=== PATIENT | female | born 1990 | race Caucasian/White ===

== ENCOUNTER 2018-12-22 16:48 | Emergency (ER) | payer OTHER, BC ==
[2018-12-22] MEDS ORDERED: SODIUM CHLORIDE 0.9% 500 ML 500 ML IV STA (16:54)
[2018-12-22] MEDS ORDERED: SODIUM CHLORIDE 0.9% 1,000 ML IV STA ×2 (16:54)
[2018-12-22] MEDS ORDERED: ACETAMINOPHEN IV (For NPO) 1,000 MG in EMPTY BAG 1 BAG IVPB STA (17:07)
[2018-12-22 17:12] LABS: Basophils % (A) 0 %; Eosinophils # (A) 0.3 k/uL (0-0.7); Eosinophils % (A) 2 %; HCT 36.1 % (34.0-46.0); Lymphocytes # (A) 3.4 k/uL (1.0-4.8); Lymphocytes % (A) 23 %; MCH 30.5 pg (25.0-35.0); MCHC 33.3 g/dL (31.0-37.0); MCV 91.8 fL (80.0-100.0); Mean Platelet Volume 7.6; Monocytes # (A) 0.6 k/uL (0-1.0); Monocytes % (A) 4 %; Neutrophils # (A) 10.3 k/uL (1.3-7.7); Neutrophils % (A) 70 %; Platelet Count 282 k/uL (150-450); RBC 3.93 m/uL (3.80-5.40); RDW 13.2 % (11.5-15.5); WBC 14.7 k/uL (3.8-10.6)
[2018-12-22 17:20] LABS: INR 0.8 (<1.2); Partial Thromboplastin Time 22.6 sec (22.0-30.0); Prothrombin Time 9.4 sec (9.0-12.0)
[2018-12-22 17:21] VITALS: BP 117/70; PULSE 87; RESP 18
[2018-12-22 17:21] LABS: ALT 35 U/L (9-52); AST 34 U/L (14-36); Albumin 3.4 g/dL (3.5-5.0); Alcohol <10 mg/dL; Alkaline Phosphatase 68 U/L (38-126); Amylase 62 U/L (30-110); Anion Gap 7 mmol/L; Blood Urea Nitrogen 6 mg/dL (7-17); Calcium 8.9 mg/dL (8.4-10.2); Carbon Dioxide 23 mmol/L (22-30); Chloride 105 mmol/L (98-107); Glucose 85 mg/dL (74-99); Lipase 136 U/L (23-300); Potassium 4.1 mmol/L (3.5-5.1); Sodium 135 mmol/L (137-145); Total Bilirubin 0.3 mg/dL (0.2-1.3); Total Protein 6.4 g/dL (6.3-8.2)
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
[2018-12-22 17:40] LABS: Creatine Kinase 77 U/L (30-135)
[2018-12-22 17:52] LABS: Creatine Kinase MB <0.2 ng/mL (0.0-2.4); Troponin I <0.012 ng/mL (0.000-0.034)
== END 2018-12-22 17:47 | disposition short-term general hospital (02) ==
LOC: EC 16:48
DX: O9A.211 Injury, poisoning and certain other consequences of external causes complicating pregnancy, first trimester (principal); S19.9XXA Unspecified injury of neck, initial encounter; S29.9XXA Unspecified injury of thorax, initial encounter; S39.91XA Unspecified injury of abdomen, initial encounter; Z3A.14 14 weeks gestation of pregnancy; V43.52XA Car driver injured in collision with other type car in traffic accident, initial encounter; Y92.410 Unspecified street and highway as the place of occurrence of the external cause
CPT/HCPCS: 36415; 86900; 86901; 80053; 82150; 82550; 82553; 83605; 83690; 84484; 85025; 85610; 85730; 86850; 80320; 99291; J0131

== ENCOUNTER 2019-04-25 11:21 | Outpatient (CLI) | payer BC, OTHER ==
[2019-04-25] MEDS ORDERED: BETAMET ACET-BETAMETH SOD PHOS 6 MG/ML VIAL IM SCH (11:30)
[2019-04-25 12:21] VITALS: BP 125/73; PULSE 88; RESP 14; TEMP 98.1
--- NOTE | 2019-05-14 08:32 | P.MSEPDOC ---
Presenting Problems - Arrival Data Date of Arrival on Unit: 04/25/19 Time of Arrival on Unit: 11:40 Mode of Transport: Ambulatory - Complaint OB-Reason for Admission/Chief Complaint: NST, Celestone Injection Medical History - Information : 1 Para: 0 Term: 0 : 0 Abortions: Spontaneous or Elective: 0 Number of Living Children: 0 - Gestational Age Gestational Age by DANNY (wks/days): 33 Weeks and 5 Days - History Complications: Multiple Review of Systems - Review of Systems Constitutional: No problems Breast: No problems ENT: No problems Cardiovascular: No problems Respiratory: No problems Gastrointestinal: No problems Genitourinary: No problems Musculoskeletal: No problems Neurological: No problems Skin: No problems Vital Signs - Temperature Temperature: 98.1 F Temperature Source: Oral - Pulse Right Brachial Pulse Rate: 88 Pulse Assessment Method: Automatic Cuff - Respirations Respiratory Rate: 14 Oxygen Delivery Method: Room Air - Blood Pressure Right Arm Blood Pressure: 125/73 Blood Pressure Mean: 90 Blood Pressure Source: Automatic Cuff Medical Screen Scoring (Pre) - Cervical Exam Dilation: Exam Deferred Effacement: Exam Deferred Membranes: Intact - Uterine Contractions Frequency: N/A Duration: N/A Intensity: N/A - Maternal Vital Signs Maternal Temperature: N/A Maternal Blood Pressure: N/A Signs of Preeclampsia: N/A Maternal Respirations: N/A - Maternal Trauma Maternal Trauma: N/A - Total Score - Baby A Total Score - Baby A: 0 - Total Score - Baby B Total Score - Baby B: 0 - Total Score - Baby C Total Score - Baby C: 0 - Level of Risk - Baby A Level of Risk - Baby A: Low (0-5) - Level of Risk - Baby B Level of Risk - Baby B: Low (0-5) - Level of Risk - Baby C Level of Risk - Baby C: Low (0-5) Physician Notification (Pre) - Physician Notified Physician Notified Date: 04/25/19 Physician Notified Time: 11:42 Physician/Practitioner Notifed:: anthony Spoke With: anthony New Order Received: Yes - Notification Comment Comment: twin nst and first celestone injection Disposition - Disposition OB Disposition: Discharge to home Discharge Date: 04/25/19 Discharge Time: 12:25 I agree with the RN Medical Screening Exam: Yes Risk & Benefit of care provided described in d/c instruction: Yes Diagnosis: OTHER SPECIFIED COMPLICATIONS OF LABOR AND DELIVERY
== END 2019-04-25 12:25 | disposition home or self-care (01) ==
LOC: FBPOP 11:21
PROVIDERS: ATTEND Obstetrics & Gynecology Obstetrics
DX: O75.89 Other specified complications of labor and delivery (principal); Z3A.33 33 weeks gestation of pregnancy
CPT/HCPCS: 59025; 99213; J0702

== ENCOUNTER 2019-04-26 12:06 | Outpatient (CLI) | payer BC, OTHER ==
[2019-04-26] MEDS ORDERED: BETAMET ACET-BETAMETH SOD PHOS 6 MG/ML VIAL IM SCH (12:30)
== END 2019-04-26 12:30 | disposition home or self-care (01) ==
LOC: FBPOP 12:06
PROVIDERS: ATTEND Obstetrics & Gynecology Obstetrics
DX: O60.03 Preterm labor without delivery, third trimester (principal); Z3A.33 33 weeks gestation of pregnancy
CPT/HCPCS: 96372; J0702

== ENCOUNTER 2019-05-18 10:17 | Inpatient (IN) | payer BC, OTHER ==
[2019-05-18] MEDS ORDERED: CITRIC ACID-SODIUM CITRATE 15 ML CUP PO ONE (10:51)
[2019-05-18] MEDS ORDERED: ALBUTEROL NEBULIZED 2.5 MG/3 ML INHALATION PRN (10:52)
[2019-05-18] MEDS ORDERED: LACTATED RINGERS 1,000 ML IV SCH (11:00)
--- NOTE | 2019-05-18 11:01 | P.HPOB ---
History of Present Illness H&P Date: 05/18/19 Chief Complaint: IUP @ 37 0/7 weeks di/di twin gestation, unstable lie This is a pleasant 28 yo at 37 weeks that presents for LTCS secondary to known twin gestation/ unstable lie of twins. she has been experiencing frequent contractions, and pelvic discomfort. she den ies VB, LOF and notes good FM x 2. she has been recieving routine care with myself since the first trimester, and care has been uncomplicated. on blood work she has a blood type of Opos, rubella is immune, RPR NR, HeBSag neg, she did pass her 1 hour gds, received Tdap on 03/14, and gbs was neg on 05/08 she was counseled on the need for c section given the unstable lie of these babies, breech/breech at last ultrasound. Review of Systems Constitutional: Reports fatigue, Denies chills, Denies fever Ears, nose, mouth and throat: Denies headache Cardiovascular: Reports leg edema Respiratory: Denies dyspnea Gastrointestinal: Denies constipation, Denies diarrhea, Denies nausea, Denies vomiting Genitourinary: Reports Past Medical History Past Medical History: Asthma, GERD/Reflux Additional Past Medical History / Comment(s): IBS, WITH TWINS History of Any Multi-Drug Resistant Organisms: None Reported Past Surgical History: No Surgical Hx Reported Additional Past Surgical History / Comment(s): EGD Past Anesthesia/Blood Transfusion Reactions: No Reported Reaction Past Psychological History: No Psychological Hx Reported Smoking Status: Never smoker Past Alcohol Use History: None Reported Additional Past Alcohol Use History / Comment(s): NO ALCOHOL DURING Past Drug Use History: None Reported - Past Family History Mother Family Medical History: No Reported History Medications and Allergies Home Medications Medication Instructions Recorded Confirmed Type Albuterol Inhaler [Ventolin Hfa 2 puff INHALATION RT-Q6H PRN 12/22/18 05/14/19 History Inhaler] Pnv No.95/Ferrous Fum/Folic AC 1 tab PO DAILY 12/22/18 05/14/19 History [ Multivitamin Tablet] Allergies Allergy/AdvReac Type Severity Reaction Status Date / Time No Known Allergies Allergy Verified 05/14/19 13:12 Exam Osteopathic Statement: *. No significant issues noted on an osteopathic structural exam other than those noted in the History and Physical/Consult. targerted physical exam done on this date, in general this is well nourished female in no acute distress, abdomen is gravid with twin gestation, F HTS are reactive x 2, cervical exam is deferred, - OBG Physical Exam Abdomen: gravid with twin gestation Assessment and Plan (1) Twin Current Visit: Yes Status: Acute Code(s): O30.009 - TWIN , UNSP NUM PLCNTA & AMNIO SACS, UNSP TRIMESTER SNOMED Code(s): 45161066 (2) Malpresentation before onset of labor Current Visit: Yes Status: Acute Code(s): O32.9XX0 - MATERNAL CARE FOR MALPRESENTATION OF FETUS, UNSP, UNSP SNOMED Code(s): 935658993 Plan: plan primary LTCS given malpresentation of the twins. c section is discussed with pt at length in the office and all questions were answered. will proceed to OR for planned c section.
[2019-05-18 11:22] LABS: Anisocytosis Slight; Basophils % (A) 0 %; Eosinophils # (A) 0.1 k/uL (0-0.7); Eosinophils % (A) 1 %; HCT 33.4 % (34.0-46.0); HGB 10.8 gm/dL (11.4-16.0); Hypochromasia Slight; Lymphocytes # (A) 2.1 k/uL (1.0-4.8); Lymphocytes % (A) 19 %; MCH 28.5 pg (25.0-35.0); MCHC 32.3 g/dL (31.0-37.0); Mean Platelet Volume 9.1; Monocytes # (A) 0.5 k/uL (0-1.0); Monocytes % (A) 4 %; Neutrophils # (A) 8.4 k/uL (1.3-7.7); Neutrophils % (A) 75 %; Platelet Count 239 k/uL (150-450); RDW 16.9 % (11.5-15.5); WBC 11.3 k/uL (3.8-10.6)
[2019-05-18 11:33] VITALS: BMI 90.1
[2019-05-18] MEDS ORDERED: NALBUPHINE 10 MG/ML (1 ML AMP) IM ONE (12:11)
[2019-05-18] MEDS ORDERED: NALBUPHINE 10 MG/ML (1 ML AMP) ONE (12:23)
[2019-05-18] MEDS ORDERED: LACTATED RINGERS 1,000 ML BAG IV ONE (12:23)
[2019-05-18] MEDS ORDERED: .MORPHINE SULFATE (INJ) 10 MG/ML SYRINGE ONE (12:23)
[2019-05-18] MEDS ORDERED: ePHEDrine SULFATE/0.9% NACL/PF 50 MG/5 ML SYRINGE IV ONE (12:23)
[2019-05-18] MEDS ORDERED: ONDANSETRON 4 MG/2 ML VIAL ONE (12:23)
[2019-05-18] MEDS ORDERED: OXYTOCIN 10 UNIT/ML 1 ML VIAL ONE (12:23)
[2019-05-18] MEDS ORDERED: MORPHINE SULFATE (PF) 0.3 MG/0.3 ML SYR ONE (12:23)
[2019-05-18] MEDS ORDERED: KETOROLAC 30 MG/ML 1 ML VIAL IVP PRN (13:07)
[2019-05-18] MEDS ORDERED: diphenhydrAMINE 50 MG/ML 1 ML VIAL IVP PRN ×3 (13:07→13:14)
[2019-05-18] MEDS ORDERED: NALOXONE 0.4 MG/ML 1 ML VIAL IV PRN ×2 (13:07→13:14)
[2019-05-18] MEDS ORDERED: MORPHINE SULFATE 4 MG/ML SYRINGE IVP PRN (13:07)
[2019-05-18] MEDS ORDERED: HYDROcodone/APAP 5-325MG 1 EACH TAB PO PRN (13:14)
[2019-05-18] MEDS ORDERED: ONDANSETRON 4 MG/2 ML VIAL IVP PRN (13:14)
[2019-05-18] MEDS ORDERED: ZOLPIDEM 5 MG TAB PO PRN (13:14)
[2019-05-18] MEDS ORDERED: METOCLOPRAMIDE 5 MG/ML 2 ML VIAL IVP PRN (13:14)
[2019-05-18] MEDS ORDERED: diphenhydrAMINE 25 MG CAP PO PRN (13:14)
[2019-05-18] MEDS ORDERED: SIMETHICONE 80 MG CHEWABLE PO PRN (13:14)
[2019-05-18] MEDS ORDERED: diphenhydrAMINE 50 MG CAP PO PRN (13:14)
[2019-05-18] MEDS ORDERED: OXYTOCIN 20 UNITS/1000 ML NS 1,000 ML IV SCH (13:15)
--- NOTE | 2019-05-18 13:20 | P.OP ---
Date of Procedure: 05/18/19 Preoperative Diagnosis: IUP at 37-0/7 weeks, twin gestation, unstable lie Postoperative Diagnosis: Same Procedure(s) Performed: Primary low transverse section Anesthesia: spinal Surgeon: Whit Barnes Football Coach #1: Anuj Mandujano Estimated Blood Loss (ml): 700 IV fluids (ml): 1,300 Urine output (ml): 150 Pathology: none sent Condition: stable Disposition: observation Indications for Procedure: Twin gestation with unstable lie, extreme maternal discomfort Operative Findings: Normal uterus tubes and ovaries were appreciated upon entering the abdomen infant a baby boy, weight of 6 lbs. 7 oz. with time of 1242, Apgars of 9 and 10 infant B baby girl delivered at 1243, weight of 6 lbs. 6 oz. with Apgars of 8 and 9 at one and 5 minutes respectively. Description of Procedure: Patient was taken back to the operating suite where spinal anesthesia was administered by the anesthesia department. She was then prepped and draped in normal sterile fashion in the dorsal supine position. A Pfannenstiel skin incision was made with the scalpel and carried through the underlying layer of fascia. The fascia was then incised in the midline and the incision was extended laterally. The anterior aspect of the fascial incision was then grasped with Alsey clamps, elevated and underlying rectus muscles dissected off sharply. The inferior aspect of the fascial incision was then grasped with Sahara clamps, elevated and underlying rectus muscle was dissected off sharply once again. The rectus muscles were in the midline the peritoneum was identified and entered sharply. This incision was then extended superiorly and inferiorly with good visualization of the bladder. The vesicouterine peritoneum was identified and the bladder flap was created using sharp and blunt dissection. The bladder blade was then inserted into the abdominal cavity. Hysterotomy site was then incised and a baby boy, was encountered in a transverse presentation converted to a breech presentation and delivered in the usual fashion. The cord was then doubly clamped and cut and the was handed off to awaiting RN. Infant B baby girl was then encountered in a vertex presentation the amniotic sac was ruptured clear fluid was obtained and the infant was delivered in the usual fashion the cord was doubly clamped and cut and the infant was handed off to an additional RN. Cord blood was then taken. The placentas were then delivered manually and the uterus was cleared of all clots and debris. The uterus was then delivered out of the abdomen. The hysterotomy site was then closed with 0 Vicryl in a running locked fashion from one lateral edge the other lateral edge an additional suture was used to obtain hemostasis. Some bleeding was noted on the left-hand side of the uterine incision therefore a [id number] suture was used to obtain hemostasis. The pelvis then copiously irrigated. The uterus was returned to the abdomen, and the hysterotomy site was inspected and hemostasis was appreciated. The gutters were cleared of all clots and debris at this time. The fascial incision was then closed with 0 Vicryl in a running locked fashion from one lateral edge the other lateral edge. The subcutaneous tissue was then irrigated and hemostasis was appreciated. The subcutaneous tissues then closed with 3-0 Vicryl in a running fashion. The skin was then closed with 4-0 Vicryl in a subcuticular fashion. Steri-Strips and sterile dressings were applied as needed. All counts were correct 2 patient and infants tolerated delivery well and are resting comfortably.
[2019-05-18] MEDS ORDERED: ACETAMINOPHEN IV (For NPO) 1,000 MG in EMPTY BAG 1 BAG IVPB ONE (13:30)
[2019-05-18] MEDS ORDERED: IBUPROFEN IV 800 MG in SODIUM CHLORIDE 0.9% 250 ML IV ONE (13:30)
[2019-05-18] MEDS: LACTATED RINGERS 1,000 ML IV SCH (20:30)
[2019-05-18] MEDS: SENNOSIDES-DOCUSATE SODIUM 1 EACH TAB PO SCH (20:35)
[2019-05-19 08:01] LABS: Anisocytosis Slight; Basophils % (A) 0 %; Eosinophils # (A) 0.1 k/uL (0-0.7); Eosinophils % (A) 1 %; HCT 23.7 % (34.0-46.0); Hypochromasia Slight; Lymphocytes # (A) 2.4 k/uL (1.0-4.8); Lymphocytes % (A) 21 %; MCHC 31.7 g/dL (31.0-37.0); MCV 88.5 fL (80.0-100.0); Mean Platelet Volume 8.8; Monocytes # (A) 0.5 k/uL (0-1.0); Monocytes % (A) 5 %; Neutrophils # (A) 8.2 k/uL (1.3-7.7); Neutrophils % (A) 73 %; Platelet Count 203 k/uL (150-450); RBC 2.67 m/uL (3.80-5.40); RDW 16.5 % (11.5-15.5); WBC 11.4 k/uL (3.8-10.6)
[2019-05-19 08:04] LABS: HGB 7.5 gm/dL (11.4-16.0)
[2019-05-19] MEDS: SENNOSIDES-DOCUSATE SODIUM 1 EACH TAB PO SCH ×2 (08:14→19:18)
[2019-05-19] MEDS: PRENATAL VIT-IRON-FOLIC ACID 1 EACH CAP PO SCH (08:15)
[2019-05-19] MEDS: IBUPROFEN 600 MG TAB PO PRN ×2 (08:15→13:53)
--- NOTE | 2019-05-19 08:27 | P.PN ---
Progress Note - Text Progress Note Date: 05/19/19 Patient is without complaints. Denies weakness or paresthesia. Denies headache. Pruritis controlled. Pain treated. A/P POD#1 s/p with spinal duramorph - doing well
--- NOTE | 2019-05-19 10:13 | P.PNOBGPC ---
Subjective - Subjective Principal diagnosis: POD 1 LTCS Interval history: Patient has done well overnight. The nausea and vomiting that she noted after the had resolved. She is ambulating and voiding without difficulty. She is tolerating clear liquids without nausea or vomiting. Her lochia is minimal. She is breast-feeding. Patient reports: Reports appetite normal, Reports voiding normally, Reports pain well controlled, Reports ambulating normally [place]: doing well Objective - Vital Signs Latest vital signs: Vital Signs Temp Pulse Resp BP Pulse Ox 05/19/19 08:00 99.3 F 95 18 129/85 97 05/19/19 06:00 16 97 05/19/19 04:00 98.4 F 76 16 137/76 05/19/19 02:00 18 97 05/19/19 00:00 98.2 F 80 16 127/74 05/18/19 22:00 16 97 05/18/19 20:00 97.8 F 76 16 123/70 97 05/18/19 18:00 16 05/18/19 16:00 97.1 F L 73 16 135/57 96 05/18/19 15:06 98.0 F 86 18 139/67 05/18/19 14:45 68 17 137/60 05/18/19 14:15 95.9 F L 86 18 129/58 05/18/19 14:00 96.3 F L 77 14 112/53 99 05/18/19 13:45 91 15 107/55 98 05/18/19 13:30 96.9 F L 76 17 109/55 05/18/19 13:15 98.2 F 76 18 109/55 100 05/18/19 10:59 98.3 F 76 18 139/85 98 Intake and Output 05/18/19 05/19/19 05/19/19 22:59 06:59 14:59 Intake Total 1000 Output Total 700 4350 Balance -700 -3350 Intake: Intake, IV Titration 1000 Amount Lactated Ringers 1,000 ml 1000 @ 125 mls/hr IV .Q8H [facility] [place] Rx#:[id number] Output: Urine 4350 Estimated Blood Loss 700 Other: Voiding Method Indwelling Catheter # Emes[place] 3 - Exam Extremities: Present: normal, edema Abdomen: Present: normal appearance, soft Incision: Present: normal, dry, intact Uterus: Present: normal, firm - Labs Labs: Abnormal Lab Results - Last 24 Hours (Table) 05/18/19 05/19/19 Range/Units 10:50 06:37 WBC 11.3 H 11.4 H (3.8-10.6) k/uL RBC 2.67 L (3.80-5.40) m/uL Hgb 10.8 L 7.5 L D (11.4-16.0) gm/dL Hct 33.4 L 23.7 L (34.0-46.0) % RDW 16.9 H 16.5 H (11.5-15.5) % Neutrophils # 8.4 H 8.2 H (1.3-7.7) k/uL Assessment and Plan (1) Twin Current Visit: Yes Status: Acute Code(s): O30.009 - TWIN , UNSP NUM PLCNTA & AMNIO SACS, UNSP TRIMESTER SNOMED Code(s): 97540886 (2) Malpresentation before onset of labor Current Visit: Yes Status: Acute Code(s): O32.9XX0 - MATERNAL CARE FOR MALPRESENTATION OF FETUS, UNSP, UNSP SNOMED Code(s): 546670180 Plan: Patient is doing well, will plan to continue routine postoperative care and anticipate discharge home tomorrow.
[2019-05-19] MEDS: ACETAMINOPHEN TAB 325 MG TAB PO PRN (19:17)
[2019-05-19] MEDS: LACTATED RINGERS 1,000 ML IV SCH ×6 (20:32→20:39)
[2019-05-20] MEDS: IBUPROFEN 600 MG TAB PO PRN ×4 (00:05→22:08)
[2019-05-20] MEDS: SENNOSIDES-DOCUSATE SODIUM 1 EACH TAB PO SCH ×2 (07:53→20:08)
[2019-05-20] MEDS: PRENATAL VIT-IRON-FOLIC ACID 1 EACH CAP PO SCH (07:53)
--- NOTE | 2019-05-20 11:46 | P.PNOBGPC ---
Subjective - Subjective Principal diagnosis: POD 2 LTCS twins Interval history: Patient is doing well overall. She is involuting and voiding without difficulty. She states her pain is controlled with by mouth pain medications she is struggling with breast-feeding at this time. Her lochia is minimal. Patient reports: Reports appetite normal, Reports voiding normally, Reports pain well controlled, Reports ambulating normally [place]: doing well (Baby girl is nursing well, baby boy is struggling and continues to work in nursing and supplement with formula) Objective - Vital Signs Latest vital signs: Vital Signs Temp Pulse Resp BP BP Pulse Ox 05/20/19 08:00 98.3 F 83 18 141/74 96 05/20/19 00:00 98.3 F 89 16 144/69 05/19/19 16:00 98.5 F 95 18 138/88 97 05/19/19 12:00 98.2 F 78 18 133/72 Intake and Output 05/19/19 05/20/19 05/20/19 22:59 06:59 14:59 Output Total 600 Balance -600 Output: Urine 600 Other: # Voids 2 1 - Exam Extremities: Present: normal, edema Abdomen: Present: normal appearance, soft Incision: Present: normal, dry, intact Assessment and Plan (1) Twin Current Visit: Yes Status: Acute Code(s): O30.009 - TWIN , UNSP NUM PLCNTA & AMNIO SACS, UNSP TRIMESTER SNOMED Code(s): 41663093 (2) Malpresentation before onset of labor Current Visit: Yes Status: Acute Code(s): O32.9XX0 - MATERNAL CARE FOR MALPRESENTATION OF FETUS, UNSP, UNSP SNOMED Code(s): 955502002 (3) S/P section Current Visit: Yes Status: Acute Code(s): Z98.891 - HISTORY OF UTERINE SCAR FROM PREVIOUS SURGERY SNOMED Code(s): 883485980 Plan: We'll continue routine postoperative care for mom and continue to work on breast-feeding. Anticipate discharge home tomorrow.
[2019-05-21] MEDS: IBUPROFEN 600 MG TAB PO PRN (04:01)
[2019-05-21] MEDS: ACETAMINOPHEN TAB 325 MG TAB PO PRN (08:17)
[2019-05-21] MEDS: SENNOSIDES-DOCUSATE SODIUM 1 EACH TAB PO SCH (08:17)
[2019-05-21 08:33] VITALS: BP 156/76; PULSE 87; RESP 16; TEMP 97.7
--- NOTE | 2019-05-21 09:37 | P.DS ---
Providers Date of admission: 05/18/19 10:17 Expected date of discharge: 05/21/19 Attending physician: Whit Barnes Primary care physician: Sandhya Perez - Discharge Diagnosis(es) (1) Twin Current Visit: Yes Status: Acute (2) Malpresentation before onset of labor Current Visit: Yes Status: Acute (3) S/P section Current Visit: Yes Status: Acute Hospital Course: This is a pleasant 28-year-old 1 para 1002 that presented to labor and delivery on primary secondary to twin gestation and malpresentation. Patient underwent without difficulty for further details on the please see the operative report. Patient's postoperative course is an onset essentially uneventful. On this postop day #3 she is a billing and voiding without difficulty. She is tolerating a regular diet without nausea or vomiting. She is breast-feeding these twins without difficulty. Her lochia is minimal. She states she feels well and wishes discharge home. She delivered a viable male weight of 6 lbs. 7 oz. at 1242, viable female delivered at 1243, weight of 6 lbs. 6 oz. Plan - Discharge Summary Discharge Rx Participant: Yes New Discharge Prescriptions: No Action Albuterol Inhaler [Ventolin Hfa Inhaler] 2 puff INHALATION RT-Q6H PRN PRN Reason: Shortness Of Breath Pnv No.95/Ferrous Fum/Folic AC [ Multivitamin Tablet] 1 tab PO DAILY Discharge Medication List Albuterol Inhaler [Ventolin Hfa Inhaler] 2 puff INHALATION RT-Q6H PRN 12/22/18 [History] Pnv No.95/Ferrous Fum/Folic AC [ Multivitamin Tablet] 1 tab PO DAILY 12/22/18 [History] Follow up Appointment(s)/Referral(s): Whit Barnes DO [Doctor of Osteopathic Medicine] - 2 Weeks (already has appt scheduled.) Patient Instructions/Handouts: Vaginal Delivery (GEN), Vaginal Delivery (DC) Discharge Disposition: HOME SELF-CARE
[2019-05-21] MEDS: PRENATAL VIT-IRON-FOLIC ACID 1 EACH CAP PO SCH (10:35)
== END 2019-05-21 11:45 | disposition home or self-care (01) | DRG 788 ==
LOC: 4FBP 10:17
PROVIDERS: ADMIT Obstetrics & Gynecology Obstetrics; ATTEND Obstetrics & Gynecology Obstetrics
PROC: 10D00Z1 Extraction of Products of Conception, Low, Open Approach (ICD-10-PCS; principal; 2019-05-18 12:23)
DX: O32.0XX1 Maternal care for unstable lie, fetus 1 (principal); O32.0XX2 Maternal care for unstable lie, fetus 2; O30.043 Twin pregnancy, dichorionic/diamniotic, third trimester; Z3A.37 37 weeks gestation of pregnancy; Z37.2 Twins, both liveborn; O99.52 Diseases of the respiratory system complicating childbirth; J45.909 Unspecified asthma, uncomplicated; O99.62 Diseases of the digestive system complicating childbirth; K21.9 Gastro-esophageal reflux disease without esophagitis; K58.9 Irritable bowel syndrome, unspecified; L29.9 Pruritus, unspecified; Z79.899 Other long term (current) drug therapy
CPT/HCPCS: 85025; 86850; 86900; 86901

== ENCOUNTER 2023-12-19 06:09 | Inpatient (IN) | payer OTHER, BC ==
[2023-12-19] MEDS ORDERED: LIDOCAINE 0.5% (PF) 5 MG/ML (50 ML SDV) SQ PRN (06:13)
[2023-12-19] MEDS ORDERED: CARBOPROST TROMETHAMINE 250 MCG/ML 1 ML AMP IM PRN (06:13)
[2023-12-19] MEDS ORDERED: OXYTOCIN 10 UNIT/ML 1 ML VIAL IM PRN (06:13)
[2023-12-19] MEDS ORDERED: TRANEXAMIC 1,000 MG/100ML-NACL 1,000 MG in EMPTY BAG 1 BAG IV PRN (06:13)
[2023-12-19] MEDS ORDERED: miSOPROStoL 200 MCG TAB PO PRN (06:13)
[2023-12-19] MEDS ORDERED: METHYLERGONOVINE 0.2 MG/ML 1 ML AMP IM PRN (06:13)
[2023-12-19] MEDS ORDERED: TERBUTALINE 1 MG/ML VIAL SQ PRN (06:13)
[2023-12-19] MEDS ORDERED: OXYTOCIN 30 UNITS/500 ML NS 30 UNIT in SALINE 1 500ML.BAG IV SCH (06:15)
[2023-12-19] MEDS: LACTATED RINGERS 1,000 ML IV SCH (06:51)
[2023-12-19] MEDS: PENICILLIN G POTASSIUM 5,000,000 UNIT in DEXTROSE 5% IN WATER 100 ML IVPB STA (06:52)
[2023-12-19] MEDS: OXYTOCIN 30 UNITS/500 ML NS 30 UNIT in SALINE 1 500ML.BAG IV SCH (07:01)
[2023-12-19 07:06] LABS: Basophils % (A) 0 %; Eosinophils # (A) 0.2 k/uL (0-0.7); Eosinophils % (A) 1 %; HCT 40.3 % (34.0-46.0); HGB 13.7 gm/dL (11.4-16.0); Lymphocytes % (A) 23 %; MCH 32.5 pg (25.0-35.0); MCHC 34.1 g/dL (31.0-37.0); MCV 95.4 fL (80.0-100.0); Mean Platelet Volume 8.8; Monocytes # (A) 0.6 k/uL (0-1.0); Monocytes % (A) 5 %; Neutrophils # (A) 8.9 k/uL (1.3-7.7); Neutrophils % (A) 70 %; Platelet Count 227 k/uL (150-450); RBC 4.22 m/uL (3.80-5.40); RDW 12.9 % (11.5-15.5); WBC 12.9 k/uL (3.8-10.6)
[2023-12-19] MEDS: PENICILLIN G POTASSIUM 2,500,000 UNIT in DEXTROSE 5% IN WATER 100 ML IVPB SCH (10:58)
[2023-12-19] MEDS: NALBUPHINE 10 MG/ML (10 ML MDV) IV PRN (12:26)
[2023-12-19] MEDS ORDERED: SODIUM CHLORIDE 0.9% 250 ML BAG ONE (15:30)
[2023-12-19] MEDS ORDERED: ROPIVACAINE 5 MG/ML 30 ML VIAL ONE (15:30)
[2023-12-19] MEDS ORDERED: fentaNYL (PF) 50 MCG/ML 5 ML AMP ONE (15:30)
[2023-12-19] MEDS ORDERED: MORPHINE SULFATE (PF) 0.3 MG/0.3 ML SYR ONE (23:00)
[2023-12-19] MEDS ORDERED: SUCCINYLCHOLINE CHLORIDE 200 MG/10 ML VIAL IV ONE (23:00)
[2023-12-19] MEDS ORDERED: ceFAZolin 1 GM/50 ML BAG (PMX) ONE (23:00)
[2023-12-19] MEDS ORDERED: PROPOFOL 10 MG/ML 20 ML VIAL IV ONE (23:00)
[2023-12-19] MEDS ORDERED: fentaNYL (PF) 50 MCG/ML 2 ML AMP ONE (23:00)
[2023-12-19] MEDS ORDERED: OXYTOCIN 30 UNITS/500 ML NS BAG IV ONE (23:00)
[2023-12-19] MEDS ORDERED: ONDANSETRON 4 MG/2 ML VIAL ONE (23:00)
[2023-12-19] MEDS ORDERED: ONDANSETRON 4 MG/2 ML VIAL IVP PRN (23:37)
[2023-12-19] MEDS ORDERED: diphenhydrAMINE 50 MG/ML 1 ML VIAL IVP PRN (23:37)
[2023-12-19] MEDS ORDERED: NALOXONE 0.4 MG/ML 1 ML VIAL IV PRN (23:37)
[2023-12-19] MEDS ORDERED: NALBUPHINE 10 MG/ML (10 ML MDV) IV PRN (23:37)
[2023-12-20] MEDS ORDERED: ONDANSETRON 4 MG/2 ML VIAL IVP PRN (00:12)
[2023-12-20] MEDS ORDERED: diphenhydrAMINE 25 MG CAP PO PRN (00:12)
[2023-12-20] MEDS ORDERED: diphenhydrAMINE 50 MG CAP PO PRN (00:12)
[2023-12-20] MEDS ORDERED: diphenhydrAMINE 50 MG/ML 1 ML VIAL IVP PRN ×2 (00:12)
[2023-12-20] MEDS ORDERED: NALOXONE 0.4 MG/ML 1 ML VIAL IV PRN (00:12)
[2023-12-20] MEDS ORDERED: ZOLPIDEM 5 MG TAB PO PRN (00:12)
[2023-12-20] MEDS ORDERED: METOCLOPRAMIDE 5 MG/ML 2 ML VIAL IVP PRN (00:12)
--- NOTE | 2023-12-20 00:27 | P.OP ---
Date of Procedure: 12/20/23 Preoperative Diagnosis: IUP at 40-2/7 weeks, history of x 1 for twin gestation, nonreassuring heart tones Postoperative Diagnosis: Same plus uterine rupture Procedure(s) Performed: section Anesthesia: ALVIN Surgeon: Whit Barnes Um Nurse #1: Annie Greenwood Estimated Blood Loss (ml): 800 IV fluids (ml): 750 Urine output (ml): 150 Pathology: other (Placenta) Condition: stable Disposition: observation Indications for Procedure: 32-year-old -0-0-2 at 40-3/7 weeks that presented to labor and delivery for induction of labor. Patient was admitted to labor and delivery and Pitocin induction of labor was begun. Patient was very desirous of a trial of labor after . Risks were reviewed and patient stated understanding. Patient progressed well through labor reassuring, category 1 heart tones were noted throughout. Patient was noted to be 8 to 9 cm, after an episode of emesis heart tones were noted to be in the 50s with slight return to baseline followed by another episode of emesis and return to 50s/60s. Decision at that point was made to proceed with emergent . Anesthesia was notified and presented for general anesthesia. Support person was notified of situation along with mom. Patient was taken back emergently to the operating suite. Operative Findings: Upon entering the peritoneal cavity dark blood was appreciated along with the head infant was delivered via vacuum assist and taken to the warmer for evaluation after the umbilical cord was doubly clamped and cut. Description of Procedure: Patient was taken back to the operating suite where general anesthesia was obtained without difficulty by the anesthesia department. She was prepped and draped in the normal sterile fashion in the dorsal supine position. A Pfannenstiel skin incision was made with a scalpel and carried through the underlying layer of fascia. The fascia was then extended laterally. The superior aspect of the fascial incision was then grasped with Mindi clamps, elevated and the underlying rectus muscles dissected off sharply. The inferior aspect of the fascial incision was then grasped with Mindi clamps, elevated and the underlying rectus muscles dissected off sharply. The rectus muscle was in the midline the peritoneum was identified and entered dark blood was appreciated upon entry into the peritoneal cavity. The head was encountered in the abdomen, vacuum was applied and the infant was delivered with 1 pull of the vacuum. The umbilical cord was doubly clamped and cut and the was handed off to waiting RN. The placenta was delivered manually and the uterus was exteriorized of all clots and debris. The uterine incision was closed with 0 Vicryl in a running locked fashion multiple [id number] sutures were used to obtain hemostasis and closure. The Coelho was noted to be draining clear urine throughout the bladder was far from the operating field. Small amount of oozing was appreciated from the right lateral hysterotomy incision, therefore Surgicel powder was placed along the hysterotomy incision and bladder flap. The uterus was then returned to the abdomen. The gutters were cleared of clots and debris. The peritoneum was loosely reapproximated. The rectus muscles were inspected and any points of bleeding were made hemos tatic with the Bovie. The fascia was then closed with 0 Vicryl in a running fashion from 1 lateral edge to the other. The subcutaneous tissue was irrigated and found to be hemostatic and closed with 3-0 Vicryl. The skin was closed with 4-0 Vicryl in a subcuticular fashion. Steri-Strips and sterile dressings are applied. All counts were noted be correct x 2. Patient tolerated procedure well. Infant was taken to the nursery and stabilized and is currently doing well.
--- NOTE | 2023-12-20 00:27 | P.HPOB ---
History of Present Illness H&P Date: 12/19/23 Chief Complaint: IUP @ 40 3/7 weeks, TOLAC 32-year-old -0-0-2 at 40-3/7 weeks that presents to labor and delivery for induction of labor. Patient had a prior twin necessitating a delivery. Patient desires trial of labor after . Patient has been receiving routine care which has been essentially uncomplicated. This morning patient notes good movement denies vaginal bleeding or loss of fluid. On blood work Review of Systems Constitutional: Denies chills, Denies fatigue, Denies fever Ears, nose, mouth and throat: Denies headache Cardiovascular: Reports leg edema Respiratory: Denies dyspnea Gastrointestinal: Denies constipation, Denies diarrhea, Denies nausea, Denies vomiting Genitourinary: Reports Past Medical History Past Medical History: No Reported History Additional Past Medical History / Comment(s): IBS, WITH TWINS History of Any Multi-Drug Resistant Organisms: None Reported Past Surgical History: No Surgical Hx Reported Additional Past Surgical History / Comment(s): EGD Past Anesthesia/Blood Transfusion Reactions: No Reported Reaction Past Psychological History: No Psychological Hx Reported Smoking Status: Never smoker Past Alcohol Use History: None Reported Additional Past Alcohol Use History / Comment(s): NO ALCOHOL DURING Past Drug Use History: None Reported - Past Family History Father Family Medical History: Hypertension Medications and Allergies Home Medications Medication Instructions Recorded Confirmed Type Albuterol Inhaler [Ventolin Hfa 2 puff INHALATION RT-Q6H PRN 12/22/18 12/19/23 History Inhaler] Pnv No.95/Ferrous Fum/Folic AC 1 tab PO DAILY 12/22/18 12/19/23 History [ Multivitamin Tablet] Allergies Allergy/AdvReac Type Severity Reaction Status Date / Time No Known Allergies Allergy Verified 12/19/23 06:12 Exam Osteopathic Statement: *. No significant issues noted on an osteopathic structural exam other than those noted in the History and Physical/Consult. Vital Signs Temp Pulse Resp BP Pulse Ox 12/19/23 06:11 97.7 F 88 16 131/81 98 Intake and Output 12/18/23 12/19/23 12/19/23 22:59 06:59 14:59 Other: Weight 97.522 kg Targeted physical exam is performed this date General this is a well-nourished well-developed female in no acute distress, breathing is nonlabored, heart has a regular rate and rhythm, abdomen is gravid, heart tones are noted to be category 1 and she is cliff every 3 minutes, Pitocin is at 6 milliunits, on cervical exam she is 1-2/50/-3 station, amniotomy is performed and clear fluid was obtained. Results Result Diagrams: 12/19/23 06:20 Abnormal Lab Results - Last 24 Hours (Table) 12/19/23 Range/Units 06:20 WBC 12.9 H (3.8-10.6) k/uL Neutrophils # 8.9 H (1.3-7.7) k/uL Assessment and Plan (1) Post-dates Current Visit: Yes Status: Acute Code(s): O48.0 - POST-TERM SNOMED Code(s): 78909643 (2) Encounter for trial of labor Current Visit: Yes Status: Acute Code(s): YHC7364 - SNOMED Code(s): 398459538 Plan: 32-year-old 002 at 40-3/7 weeks that presents for induction of labor. Patient is admitted and Pitocin induction of labor has begun per hospital protocol. Amniotomy is performed and clear fluid was obtained. Options for analgesia are discussed including Nubain, nitrous, epidural. Patient will consider. Will monitor closely as she is a trial of labor after . Will cap Pitocin dose at 10 milliunits.
[2023-12-20] MEDS: ACETAMINOPHEN IV (For NPO) 1,000 MG in EMPTY BAG 1 BAG IVPB SCH (02:49)
[2023-12-20] MEDS: ACETAMINOPHEN TAB 500 MG TAB PO SCH (04:17)
[2023-12-20] MEDS: LACTATED RINGERS 1,000 ML IV SCH (04:19)
[2023-12-20] MEDS: ROPIVACAINE 225 MG, fentaNYL (PF). 450 MCG in SODIUM CHLORIDE 0.9% 171 ML EPIDURAL ONE (04:50)
[2023-12-20] MEDS: IBUPROFEN 600 MG TAB PO SCH (07:26)
[2023-12-20] MEDS: IBUPROFEN IV 800 MG in SODIUM CHLORIDE 0.9% 250 ML IV SCH (07:26)
--- NOTE | 2023-12-20 08:39 | P.PN ---
Progress Note - Text Progress Note Date: 12/20/23 Ms. Rangel is a 32 -year-old female had a history of emergency under general anesthesia, Patient received Astramorph 3 mg at the end of the procedure for postoperative pain control through the epidural catheter. Today patient is comfortable sitting in her bed. Today patient rated her pain level 4-5 out of 10 in severity with activity. Denied any fever, drowsiness, confusion. Denied any weakness, tingling sensation in her lower extremities. Denied any bowel or bladder problems. Moving all extremities without any difficulty, and able to walk without any difficulties. She is complaining of mild itching. As per patient which is bearable. Vitals: Hemodynamically stable Continue oral pain medication as per primary team. No complications related to anesthesia.
--- NOTE | 2023-12-20 10:19 | P.PNOBGPC ---
Subjective - Subjective Principal diagnosis: Postop day 1, secondary to uterine rupture failed Interval history: Patient is doing well this morning. Coelho remains draining clear yellow urine. Patient is noting some discomfort with movement this morning. Vital signs have been stable. Baby remains in the nursery on high flow oxygen Lochia is minimal to moderate. Patient reports: Reports other (Feeling overall well this morning, pain moderately well-controlled Coelho catheter remains) : doing well (In special care nursery on high flow oxygen) Objective - Vital Signs Latest vital signs: Vital Signs Temp Pulse Resp BP Pulse Ox 12/20/23 07:57 98.2 F 69 15 108/61 97 12/20/23 06:00 16 12/20/23 04:00 98.4 F 73 16 114/62 12/20/23 02:37 16 12/20/23 02:10 96 16 112/57 97 12/20/23 01:55 88 16 121/57 97 12/20/23 01:40 94 16 127/62 97 12/20/23 01:25 89 16 130/62 98 12/20/23 01:10 85 16 130/63 100 12/20/23 00:55 86 16 137/67 100 12/20/23 00:40 97.3 F L 88 16 134/68 100 12/20/23 00:37 16 100 12/20/23 00:25 92 16 133/68 100 12/20/23 00:10 96 16 134/67 100 12/19/23 23:37 16 Intake and Output 12/19/23 12/20/23 12/20/23 22:59 06:59 14:59 Output Total 275 1300 800 Balance -275 -1300 -800 Output: Urine 275 300 800 Estimated Blood Loss 800 Output, Quantitative 200 Blood Loss Other: Voiding Method Indwelling Catheter Indwelling Catheter - Exam Extremities: Present: normal, edema Abdomen: Present: normal appearance, soft Incision: Present: normal, dry, intact Uterus: Present: normal, firm Assessment and Plan (1) Post-dates Current Visit: Yes Status: Acute Code(s): O48.0 - POST-TERM SNOMED Code(s): 02616624 (2) Encounter for trial of labor Current Visit: Yes Status: Acute Code(s): ALS0720 - SNOMED Code(s): 353914587 (3) Desires vaginal after trial Current Visit: Yes Status: Acute Code(s): O34.219 - MATERNAL CARE FOR UNSP TYPE SCAR FROM PREVIOUS DEL SNOMED Code(s): 574649315 (4) Uterine rupture during labor Current Visit: Yes Status: Acute Code(s): O71.1 - RUPTURE OF UTERUS DURING LABOR SNOMED Code(s): 49726042216239 (5) S/P section Current Visit: No Status: Acute Code(s): Z98.891 - HISTORY OF UTERINE SCAR FROM PREVIOUS SURGERY SNOMED Code(s): 018963782 Plan: Patient is doing well overall this morning. Will encourage increased ambulation. Once able to ambulate to the bathroom Coelho catheter will be DC'd, clear liquids until flatus.
--- NOTE | 2023-12-20 10:25 | P.ANPRN ---
Procedure Note - Anesthesia - Epidural/Spinal Epidural Time Out Performed: Yes Date of Procedure: 12/19/23 Location of Patient: OR Indication: Acute Post-Operative Pain, Requested by Surgeon Catheter: Indwelling Injectate: 3 mg of preservative-free morphine injected through the epidural catheter Narrative: 3 mg of Astramorph injected through the epidural catheter at the end of the C- section for postop pain control as per surgeon's request. Blood Aspirated: No Pain Paresthesia on Injection Noted: No Events: Uneventful and Well Tolerated
[2023-12-20 11:05] LABS: HCT 31.8 % (34.0-46.0); HGB 10.9 gm/dL (11.4-16.0); MCH 32.6 pg (25.0-35.0); MCHC 34.3 g/dL (31.0-37.0); Mean Platelet Volume 9.1; Platelet Count 181 k/uL (150-450); RBC 3.34 m/uL (3.80-5.40); RDW 13.3 % (11.5-15.5); WBC 15.9 k/uL (3.8-10.6)
[2023-12-20] MEDS: PRENATAL VIT-IRON-FOLIC ACID 1 EACH TABLET PO SCH (11:43)
[2023-12-20] MEDS: SENNOSIDES-DOCUSATE SODIUM 1 EACH TAB PO SCH (11:43)
[2023-12-20] MEDS: SIMETHICONE 80 MG CHEWABLE PO PRN (15:13)
[2023-12-21 07:20] LABS: Basophils % (A) 0 %; Eosinophils # (A) 0.1 k/uL (0-0.7); Eosinophils % (A) 1 %; HCT 28.5 % (34.0-46.0); HGB 9.7 gm/dL (11.4-16.0); Lymphocytes # (A) 2.3 k/uL (1.0-4.8); Lymphocytes % (A) 19 %; MCH 32.9 pg (25.0-35.0); MCV 96.7 fL (80.0-100.0); Monocytes # (A) 0.6 k/uL (0-1.0); Monocytes % (A) 5 %; Neutrophils # (A) 9.2 k/uL (1.3-7.7); Neutrophils % (A) 75 %; Platelet Count 159 k/uL (150-450); RBC 2.95 m/uL (3.80-5.40); RDW 13.1 % (11.5-15.5); WBC 12.4 k/uL (3.8-10.6)
--- NOTE | 2023-12-21 08:56 | P.PNOBGPC ---
Subjective - Subjective Principal diagnosis: Postop day 2, status post Interval history: Patient is overall doing well postoperatively. She is ambulating and voiding without difficulty. She is tolerating clear liquids without nausea or vomiting. Last evening she did tolerate toast without vomiting. Will advance diet this morning. Lochia is moderate occasional clot is noted. Patient reports: Reports appetite normal, Reports voiding normally, Reports pain well controlled, Reports ambulating normally Pony: doing well (Special care nursery) Objective - Vital Signs Latest vital signs: Vital Signs Temp Pulse Resp BP Pulse Ox 12/21/23 08:26 98.2 F 72 14 112/71 12/21/23 00:00 97.9 F 81 16 107/67 98 12/20/23 20:00 98.2 F 82 16 108/69 98 12/20/23 15:20 98.1 F 71 18 117/71 97 12/20/23 13:40 18 12/20/23 11:47 16 95 12/20/23 11:45 97.9 F 95 16 106/66 95 12/20/23 10:00 16 Intake and Output 12/20/23 12/21/23 12/21/23 22:59 06:59 14:59 Intake Total 480 Output Total 600 200 Balance -600 -200 480 Intake: Oral 480 Output: Urine 600 200 Uretheral (Coelho) 300 Other: # Voids 1 1 - Exam Extremities: Present: normal, edema Abdomen: Present: normal appearance, soft Incision: Present: normal, dry, intact Uterus: Present: normal, firm - Labs Labs: Abnormal Lab Results - Last 24 Hours (Table) 12/20/23 12/21/23 Range/Units 10:34 06:39 WBC 15.9 H 12.4 H (3.8-10.6) k/uL RBC 3.34 L 2.95 L (3.80-5.40) m/uL Hgb 10.9 L 9.7 L (11.4-16.0) gm/dL Hct 31.8 L 28.5 L (34.0-46.0) % Neutrophils # 9.2 H (1.3-7.7) k/uL Assessment and Plan (1) Post-dates Current Visit: Yes Status: Acute Code(s): O48.0 - POST-TERM SNOMED Code(s): 68637928 (2) Encounter for trial of labor Current Visit: Yes Status: Acute Code(s): CHL2757 - SNOMED Code(s): 179339115 (3) Desires vaginal after trial Current Visit: Yes Status: Acute Code(s): O34.219 - MATERNAL CARE FOR UNSP TYPE SCAR FROM PREVIOUS DEL SNOMED Code(s): 824010219 (4) Uterine rupture during labor Current Visit: Yes Status: Acute Code(s): O71.1 - RUPTURE OF UTERUS DURING LABOR SNOMED Code(s): 65372800363281 (5) S/P section Current Visit: No Status: Acute Code(s): Z98.891 - HISTORY OF UTERINE SCAR FROM PREVIOUS SURGERY SNOMED Code(s): 828522809 Plan: Will advance diet this morning to regular, patient is urged to go slow with her breakfast tray. Should she have any nausea or vomiting will return to clear liquids versus nothing by mouth, concerns for ileus are discussed with patient. Encourage increased ambulation today.
--- NOTE | 2023-12-22 12:44 | P.PNOBGPC ---
Subjective - Subjective Principal diagnosis: Postop day 3, urgent section secondary to uterine rupture Interval history: Patient is doing well postoperatively. Some soreness is noted. Lochia is minimal milk did come in yesteday, baby is doing and off oxygen in the nursery. Patient reports: Reports appetite normal, Reports voiding normally, Reports pain well controlled, Reports ambulating normally : doing well Objective - Vital Signs Latest vital signs: Vital Signs Temp Pulse Resp BP Pulse Ox 12/22/23 08:00 98.0 F 69 17 132/79 97 12/21/23 23:58 68 16 125/79 99 12/21/23 16:00 97.9 F 63 16 127/78 98 Intake and Output 12/21/23 12/22/23 12/22/23 22:59 06:59 14:59 Other: # Voids 2 2 2 - Exam Extremities: Present: normal, edema Abdomen: Present: normal appearance, soft Incision: Present: normal, dry, intact Uterus: Present: normal, firm Assessment and Plan (1) Post-dates Current Visit: Yes Status: Acute Code(s): O48.0 - POST-TERM SNOMED Code(s): 02715454 (2) Encounter for trial of labor Current Visit: Yes Status: Acute Code(s): IDF6896 - SNOMED Code(s): 561645113 (3) Desires vaginal after trial Current Visit: Yes Status: Acute Code(s): O34.219 - MATERNAL CARE FOR UNSP TYPE SCAR FROM PREVIOUS DEL SNOMED Code(s): 474915398 (4) Uterine rupture during labor Current Visit: Yes Status: Acute Code(s): O71.1 - RUPTURE OF UTERUS DURING LABOR SNOMED Code(s): 21339173902980 (5) S/P section Current Visit: No Status: Acute Code(s): Z98.891 - HISTORY OF UTERINE SCAR FROM PREVIOUS SURGERY SNOMED Code(s): 855149640 Plan: Patient is doing well postoperatively. Continue routine postoperative care anticipate discharge home tomorrow.
[2023-12-22 16:58] VITALS: TEMP 98.5
[2023-12-23 01:51] VITALS: RESP 16
[2023-12-23 09:46] VITALS: BP 128/80; PULSE 62
--- NOTE | 2023-12-23 10:13 | P.DS ---
Providers Date of admission: 12/19/23 06:09 Expected date of discharge: 12/23/23 Attending physician: Whit Barnes Primary care physician: Stated None - Discharge Diagnosis(es) (1) Post-dates Current Visit: Yes Status: Acute (2) Encounter for trial of labor Current Visit: Yes Status: Acute (3) Desires vaginal after trial Current Visit: Yes Status: Acute (4) Uterine rupture during labor Current Visit: Yes Status: Acute (5) S/P section Current Visit: No Status: Acute Hospital Course: 32-year-old G2 now P2003 that presented to labor and delivery on 12/18 for induction of labor. Patient had a prior history of a primary for twin gestation. Patient was very desirous of a trial of labor after . Patient was admitted and Pitocin augmentation of labor was begun. Patient underwent amniotomy and clear fluid was obtained. Pitocin was capped at 10 milliunits during labor. Patient progressed through labor making progress and eventually receiving an epidural for pain control. Patient progressed to anterior lip. Patient had an episode of emesis where heart tones were noted to decrease to the 50s/60s. Infant appeared to recover on external monitoring, another episode of emesis with heart tones once again down into the 50s/60s. Patient was taken for emergent section. Upon entering the peritoneal cavity blood was appreciated along with the head. Uterine rupture was then diagnosed. Viable female infant was delivered at 2308, weight of 9 pounds 11 ounces, Apgars of 2 6 8 at 1 5 and 10 minutes respectively. For both full details on the please see the operative report. Patient's postoperative course has been essentially uneventful given uterine rupture. Patient did have a drop in her hemoglobin from 13-9 secondary to acute blood loss. Vitals have remained stable. Patient denies shortness of breath or increased fatigue associated with acute blood loss anemia. On this postoperative day #4 she is ambulating and voiding without difficulty. She is tolerating a regular diet. She states her pain is well-controlled. Her daughter should be discharged from the nursery today. She is breast-feeding. Her lochia is minimal. Patient Condition at Discharge: Good Plan - Discharge Summary New Discharge Prescriptions: No Action Albuterol Inhaler [Ventolin Hfa Inhaler] 2 puff INHALATION RT-Q6H PRN PRN Reason: Shortness Of Breath Pnv No.95/Ferrous Fum/Folic AC [ Multivitamin Tablet] 1 tab PO DAILY Discharge Medication List Albuterol Inhaler [Ventolin Hfa Inhaler] 2 puff INHALATION RT-Q6H PRN 12/22/18 [History] Pnv No.95/Ferrous Fum/Folic AC [ Multivitamin Tablet] 1 tab PO DAILY 12/22/18 [History] Follow up Appointment(s)/Referral(s): Whit Barnes DO [Doctor of Osteopathic Medicine] - 2 Weeks Activity/Diet/Wound Care/Special Instructions: No intercourse, tampons or douching. No heavy lifting greater than a gallon of milk. No driving for two weeks. Call with any fever, shakes or chills, with any pain not alleviated by over the counter meds, or with any quesions or concerns. Discharge Disposition: HOME SELF-CARE
== END 2023-12-23 15:45 | disposition home or self-care (01) | DRG 786 ==
LOC: 4FBP 06:09
PROVIDERS: ADMIT Obstetrics & Gynecology Obstetrics; ATTEND Obstetrics & Gynecology Obstetrics
PROC: 3E033VJ Introduction of Other Hormone into Peripheral Vein, Percutaneous Approach (ICD-10-PCS; 2023-12-19)
PROC: 10907ZC Drainage of Amniotic Fluid, Therapeutic from Products of Conception, Via Natural or Artificial Opening (ICD-10-PCS; 2023-12-19)
PROC: 10D00Z1 Extraction of Products of Conception, Low, Open Approach (ICD-10-PCS; principal; 2023-12-20)
DX: O34.211 Maternal care for low transverse scar from previous cesarean delivery (principal); O71.1 Rupture of uterus during labor; D62 Acute posthemorrhagic anemia; O48.0 Post-term pregnancy; O66.41 Failed attempted vaginal birth after previous cesarean delivery; O99.73 Diseases of the skin and subcutaneous tissue complicating the puerperium; L29.9 Pruritus, unspecified; O90.81 Anemia of the puerperium; O76 Abnormality in fetal heart rate and rhythm complicating labor and delivery; Z3A.40 40 weeks gestation of pregnancy; Z37.0 Single live birth
CPT/HCPCS: 85025; 85027; 86850; 86900; 86901; 88307